=== PATIENT | female | born 1970 | race Caucasian/White ===

== ENCOUNTER 2017-11-01 04:16 | Emergency (ER) | payer OTHER ==
[2017-11-01] MEDS: EPINEPHrine 1 MG INJ IM (04:29)
[2017-11-01] MEDS: FAMOTIDINE 20 MG INJ IV (04:30)
[2017-11-01] MEDS: METHYLPREDNISOLONE 125 MG INJ IV (04:30)
== END 2017-11-01 07:22 | disposition home or self-care (01) ==
LOC: E/R 04:16
DX: K14.8 Other diseases of tongue (principal); R06.02 Shortness of breath; E11.9 Type 2 diabetes mellitus without complications
CPT/HCPCS: 71045; 96372; 96374; 96375; 99284-25